=== PATIENT | female | born 1995 | race Caucasian/White ===

== ENCOUNTER 2019-08-03 19:06 | Emergency (ER) | payer MEDICAID ==
[~2019-08-03] VITALS: Ht 162.6 cm; Wt 46.4 kg
[2019-08-03 19:08] VITALS: BP 131/88
== END 2019-08-03 21:01 | disposition left against medical advice (07) ==
LOC: ER 19:07
DX: T63.301A Toxic effect of unspecified spider venom, accidental (unintentional), initial encounter (principal); Z53.21 Procedure and treatment not carried out due to patient leaving prior to being seen by health care provider